=== PATIENT | male | born 1970 | race Caucasian/White ===

== ENCOUNTER 2022-01-01 20:31 | Emergency (ER) | payer SELFPAY ==
[~2022-01-01] VITALS: Ht 170.2 cm; Wt 95.0 kg
[2022-01-01] MEDS ORDERED: ASPIRIN 81MG TABLET PO ONE (21:00)
[2022-01-01] MEDS ORDERED: SODIUM CHLORIDE 0.9% 1,000 ML IV ONE (21:00)
[2022-01-01 22:04] LABS: BASOPHILS % 0.5 % (0.0-2.0); EOSINOPHILS % 1.1 % (0.0-5.0); HEMATOCRIT. 42.8 % (42.0-52.0); HEMOGLOBIN. 14.2 g/dL (14.0-18.0); LYMPHOCYTES % 28.3 % (20.0-50.0); MEAN CORPUSCULAR HEMOGLOBIN 29.2 pg (28.0-32.0); MEAN CORPUSCULAR VOLUME 87.8 fL (80.0-94.0); MEAN PLATELET VOLUME 8.1 fl (7.4-10.4); MONOCYTES % 12.7 % (2.0-8.0); NEUTROPHILS % 57.4 % (40.0-76.0); PLATELET 178 x1000/uL (130-400); RED BLOOD CELL COUNT 4.88 mill/uL (4.7-6.1); RED CELL DISTRIBUTION WIDTH 12.7 % (11.6-14.6)
[2022-01-01 22:21] LABS: CHLORIDE 93 mEq/L (98-107)
[2022-01-01 22:36] LABS: BETA HYDROXYBUTYRATE 0.1 mMol/L (0.0-0.3); ETHANOL BLOOD < 10 mg/dL
[2022-01-02] MEDS ORDERED: ASPIRIN 81MG TABLET PO NR (00:15)
[2022-01-02] MEDS ORDERED: INSULIN LISPRO 100 UNITS/ML SUBCUT NR (00:15)
[2022-01-02 01:56] LABS: CLARITY URINE CLEAR (CLEAR); COLOR URINE YELLOW (YELLOW); KETONES URINE NEGATIVE (NEGATIVE); LEUKOCYTE ESTERASE URINE NEGATIVE (NEGATIVE); NITRITE URINE NEGATIVE (NEGATIVE); OCCULT BLOOD URINE NEGATIVE (NEGATIVE); PH URINE 7.5 (4.5-8.0); PROTEIN URINE NEGATIVE (NEGATIVE); SPECIFIC GRAVITY URINE 1.027 (1.005-1.030); UROBILINOGEN URINE 0.2 E.U./dL (0.2-1.0)
[2022-01-02 02:00] VITALS: BP 159/86
[2022-01-02] MEDS ORDERED: POTASSIUM CHLORIDE 20MEQ TABLET SR PO NR (02:00)
[2022-01-02 02:15] LABS: *AMPHETAMINES SCREEN URINE NEGATIVE (NEGATIVE); *BARBITURATES SCREEN URINE NEGATIVE (NEGATIVE); *BENZODIAZEPINES SCREEN URINE NEGATIVE (NEGATIVE); *COCAINE SCREEN URINE NEGATIVE (NEGATIVE); CANNABINOID URINE SCREEN NEGATIVE (NEGATIVE); METHADONE URINE SCREEN NEGATIVE (NEGATIVE); OPIATES URINE SCREEN NEGATIVE (NEGATIVE); PHENCYCLIDINE URINE SCREEN NEGATIVE (NEGATIVE)
== END 2022-01-02 04:09 | disposition home or self-care (01) ==
LOC: ER 20:31
DX: F10.239 Alcohol dependence with withdrawal, unspecified (principal); E11.65 Type 2 diabetes mellitus with hyperglycemia; R00.0 Tachycardia, unspecified; I10 Essential (primary) hypertension; Z20.822 Contact with and (suspected) exposure to COVID-19; Y90.0 Blood alcohol level of less than 20 mg/100 ml; Z91.14 Patient's other noncompliance with medication regimen; Z79.4 Long term (current) use of insulin; Z79.84 Long term (current) use of oral hypoglycemic drugs
CPT/HCPCS: 36415; 71045; 80053; 80305; 80320; 81003; 82010; 82962; 83880; 84484; 85025; 87426; 93005; 96360; 96372; 99285; J1815; J7030; Z7610; G0480

== ENCOUNTER 2023-09-18 20:01 | Emergency (ER) | payer SELFPAY ==
[~2023-09-18] VITALS: Ht 170.2 cm; Wt 89.0 kg
[2023-09-18 20:21] VITALS: O2SAT 100
[2023-09-18] MEDS: LIDOCAINE HCL/EPINEPHRINE 1%-EPI 1:100,000 20 ML VIAL INFIL ONE (23:15)
[2023-09-18] MEDS: BACITRACIN ZINC OINT UDPKT TOP ONE (23:15)
[2023-09-18] MEDS ORDERED: SULF1TAB48 MT (23:47)
[2023-09-19 00:40] VITALS: BP 179/97; PULSE 83; RESP 14; TEMP 98
== END 2023-09-19 00:43 | disposition home or self-care (01) ==
LOC: ER 20:01
DX: L02.31 Cutaneous abscess of buttock (principal); E11.9 Type 2 diabetes mellitus without complications; I10 Essential (primary) hypertension
CPT/HCPCS: 99283; 10060; J3490; 99282

== ENCOUNTER 2024-11-25 20:41 | Emergency (ER) | payer MEDICAID ==
[~2024-11-25] VITALS: Ht 177.8 cm; Wt 100.0 kg
[~2024-11-25 20:41] MED LIST: SULF1TAB48 MT
[2024-11-25 20:54] VITALS: O2SAT 99
[2024-11-25 21:31] VITALS: BP 140/76; PULSE 86; RESP 13; TEMP 36.8; O2SAT 99
[2024-11-25 23:48] LABS: BASOPHILS % 0.7 % (0.0-2.0); EOSINOPHILS % 0.5 % (0.0-5.0); HEMATOCRIT. 47.5 % (42.0-52.0); HEMOGLOBIN. 15.6 g/dL (14.0-18.0); LYMPHOCYTES % 49.2 % (20.0-50.0); MEAN CORPUSCULAR HEMOGLOBIN 30.2 pg (28.0-32.0); MEAN CORPUSCULAR HGB CONC 32.7 g/dL (31.0-37.0); MEAN CORPUSCULAR VOLUME 92.3 fL (80.0-94.0); MEAN PLATELET VOLUME 8.7 fl (7.4-10.4); MONOCYTES % 9.2 % (2.0-8.0); NEUTROPHILS % 40.4 % (40.0-76.0); PLATELET 266 x1000/uL (130-400); RED BLOOD CELL COUNT 5.15 mill/uL (4.7-6.1); RED CELL DISTRIBUTION WIDTH 14.5 % (11.6-14.6); WHITE BLOOD COUNT 8.8 x1000/uL (4.5-11.0)
[2024-11-26 00:06] LABS: CHLORIDE 109 mEq/L (98-107); POTASSIUM 3.7 mEq/L (3.5-5.1); SODIUM 149 mEq/L (136-145)
[2024-11-26 00:07] LABS: CALCIUM 8.3 mg/dL (8.7-10.4); CARBON DIOXIDE 19 mEq/L (21-32)
[2024-11-26 00:12] LABS: CREATININE 0.7 mg/dL (0.6-1.3); GLUCOSE 195 mg/dL (70-105)
[2024-11-26 00:13] LABS: UREA NITROGEN BLOOD 10 mg/dL (9-23)
[2024-11-26 00:31] LABS: ETHANOL BLOOD 413 mg/dL (<10)
[2024-11-26] MEDS: SODIUM CHLORIDE 0.9% 1,000 ML IV ONE (00:58)
== END 2024-11-26 02:45 | disposition home or self-care (01) ==
LOC: MERGE 20:41 → ER 20:41 → EDBD 20:41 → EDBEDREQTM 11-26 02:03 → EDBEDREQ 11-26 02:03 → ER 11-26 02:45
DX: F10.129 Alcohol abuse with intoxication, unspecified (principal); Y90.8 Blood alcohol level of 240 mg/100 ml or more
CPT/HCPCS: 80048; 80320; 85025; 36415; 99283; 96360; J7030; G0480

== ENCOUNTER 2025-03-11 18:11 | Emergency (ER) | payer MEDICAID ==
[~2025-03-11] VITALS: Ht 170.2 cm; Wt 91.0 kg
[2025-03-11 18:12] VITALS: BP 166/92; PULSE 90; RESP 18; TEMP 36.9; O2SAT 98
[2025-03-11] MEDS ORDERED: SODIUM CHLORIDE 0.9% 1,000 ML IV ONE (18:30)
[2025-03-11] MEDS ORDERED: LORAZEPAM 2MG/ML UD SYRINGE IV SCH (19:00)
== END 2025-03-11 19:26 | disposition home or self-care (01) ==
LOC: ER 18:11 → CMPBEDREQ 03-12 07:21
DX: F10.129 Alcohol abuse with intoxication, unspecified (principal); Z53.29 Procedure and treatment not carried out because of patient's decision for other reasons; Y90.9 Presence of alcohol in blood, level not specified
CPT/HCPCS: 93005; 99283; 99284; J2060; J7030

== ENCOUNTER 2025-03-12 16:20 | Inpatient (IN) | payer MEDICAID ==
[~2025-03-12] VITALS: Ht 172.7 cm; Wt 94.3 kg
[2025-03-12 16:23] VITALS: O2SAT 100
[2025-03-12] MEDS: SODIUM CHLORIDE 0.9% 1,000 ML IV ONE ×2 (17:01→18:21)
[2025-03-12] MEDS: ONDANSETRON HCL 4MG/2ML INJ IV ONE (17:01)
[2025-03-12 17:22] LABS: BASOPHILS % 0.4 % (0.0-2.0); EOSINOPHILS % 0.2 % (0.0-5.0); HEMATOCRIT. 49.1 % (42.0-52.0); HEMOGLOBIN. 15.9 g/dL (14.0-18.0); LYMPHOCYTES % 42.3 % (20.0-50.0); MEAN PLATELET VOLUME 8.3 fl (7.4-10.4); MONOCYTES % 4.9 % (2.0-8.0); NEUTROPHILS % 52.2 % (40.0-76.0); PLATELET 274 x1000/uL (130-400); RED BLOOD CELL COUNT 5.56 mill/uL (4.7-6.1); RED CELL DISTRIBUTION WIDTH 13.0 % (11.6-14.6)
[2025-03-12 17:50] LABS: CREATININE 0.7 mg/dL (0.6-1.3); TROPONIN I HIGH SENSITIVITY < 4 ng/L (3.0-53); UREA NITROGEN BLOOD 6 mg/dL (9-23)
[2025-03-12 17:51] LABS: ASPARTATE AMINOTRANSFERASE 79 IU/L (<34)
[2025-03-12 17:52] LABS: BILIRUBIN DIRECT 0.2 mg/dL (<=3.0); BILIRUBIN TOTAL 0.6 mg/dL (0.1-1.0); PROTEIN TOTAL 7.4 g/dL (6.0-8.3)
[2025-03-12] MEDS ORDERED: DOCUSATE SODIUM 100MG CAPSULE PO PRN (19:30)
[2025-03-12] MEDS ORDERED: ONDANSETRON HCL 4MG/2ML INJ IV PRN (19:30)
[2025-03-12] MEDS ORDERED: GUAIFENESIN 200MG/10ML SUGAR FREE UDC PO PRN (19:30)
[2025-03-12] MEDS ORDERED: MAGNESIUM/ALUMINUM HYDROXIDE/SIMETHICONE 30ML UDC PO PRN (19:30)
[2025-03-12] MEDS: LACTATED RINGERS 1,000 ML IV SCH (19:30)
[2025-03-12] MEDS ORDERED: IPRATROPIUM/ALBUTEROL 0.5-3(2.5)MG/3ML NEB HHN PRN (19:30)
[2025-03-12] MEDS ORDERED: ACETAMINOPHEN 325MG TABLET PO PRN ×2 (19:30)
[2025-03-12] MEDS ORDERED: CLONIDINE 0.1MG TABLET PO PRN (19:30)
[2025-03-12] MEDS ORDERED: DEXTROSE 50% WATER 50ML SYRINGE IV PRN (19:45)
[2025-03-12] MEDS: MVI, ADULT NO.1 10 ML, FOLIC ACID 1 MG, THIAMINE HCL 100 MG in SODIUM CHLORIDE 0.9% 1,0... IV SCH (20:11)
[2025-03-12] MEDS: BLOOD SUGAR DIAGNOSTIC STRIP TEST SCH (21:00)
[2025-03-12] MEDS: INSULIN LISPRO 100 UNITS/ML SUBCUT SCH (21:00)
[2025-03-12] MEDS: LORAZEPAM 2MG/ML UD SYRINGE IV PRN (21:17)
[2025-03-12 21:53] VITALS: O2SAT 100
[2025-03-12 21:59] LABS: PHOSPHORUS 3.7 mg/dL (2.5-4.9)
[2025-03-12] MEDS: CHLORDIAZEPOXIDE 25MG CAPSULE PO NR (22:03)
[2025-03-13 00:20] VITALS: BP 155/85; PULSE 100; RESP 18; TEMP 36.974
[2025-03-13 04:00] VITALS: BP 144/80; PULSE 113; RESP 16; TEMP 37.7
[2025-03-13] MEDS: LORAZEPAM 0.5MG TABLET PO PRN (04:30)
[2025-03-13 05:24] LABS: CREATININE 0.7 mg/dL (0.6-1.3)
[2025-03-13 05:25] LABS: LDL CHOLESTEROL 142 mg/dL (5-100); TRIGLYCERIDE 266 mg/dL (0-150); UREA NITROGEN BLOOD 8 mg/dL (9-23)
[2025-03-13 06:29] LABS: BASOPHILS % 0.5 % (0.0-2.0); EOSINOPHILS % 1.5 % (0.0-5.0); HEMATOCRIT. 47.0 % (42.0-52.0); HEMOGLOBIN. 15.4 g/dL (14.0-18.0); LYMPHOCYTES % 34.5 % (20.0-50.0); MEAN PLATELET VOLUME 8.4 fl (7.4-10.4); MONOCYTES % 5.3 % (2.0-8.0); NEUTROPHILS % 58.2 % (40.0-76.0); PLATELET 290 x1000/uL (130-400); RED BLOOD CELL COUNT 5.37 mill/uL (4.7-6.1); RED CELL DISTRIBUTION WIDTH 12.8 % (11.6-14.6)
[2025-03-13] MEDS: CHLORDIAZEPOXIDE 25MG CAPSULE PO SCH (06:32)
[2025-03-13] MEDS: PANTOPRAZOLE 40MG DR TABLET PO SCH (06:32)
[2025-03-13] MEDS ORDERED: ENOXAPARIN 40MG/0.4ML SYR SUBCUT SCH (09:00)
[2025-03-13] MEDS ORDERED: THIAMINE HCL 100MG TABLET PO SCH (09:00)
[2025-03-13] MEDS ORDERED: FOLIC ACID 1MG TABLET PO SCH (09:00)
[2025-03-13] MEDS ORDERED: MULTIVITAMINS,THER W-MINERALS TABLET PO SCH (09:00)
== END 2025-03-13 08:25 | disposition left against medical advice (07) | DRG 351 ==
LOC: ER 16:20 → EDBEDREQSVC 18:08 → EDBEDREQ 18:33 → EDBEDREQTM 18:33 → ENRESERV 21:45 → 5WST 23:16
PROVIDERS: ADMIT Internal Medicine; ATTEND Internal Medicine
DX: M62.82 Rhabdomyolysis (principal); G92.8 Other toxic encephalopathy; E87.20 Acidosis, unspecified; E88.89 Other specified metabolic disorders; E11.65 Type 2 diabetes mellitus with hyperglycemia; Z53.29 Procedure and treatment not carried out because of patient's decision for other reasons; F10.929 Alcohol use, unspecified with intoxication, unspecified; F10.939 Alcohol use, unspecified with withdrawal, unspecified; I10 Essential (primary) hypertension; Z91.199 Patient's noncompliance with other medical treatment and regimen due to unspecified reason; Z59.00 Homelessness unspecified; Z79.899 Other long term (current) drug therapy; Y90.8 Blood alcohol level of 240 mg/100 ml or more
CPT/HCPCS: 36415; 80048; 80061; 80076; 80307; 80320; 80329; 82010; 82140; 82550; 82553; 82962; 83036; 83605; 83735; 83880; 84100; 84443; 84484; 85025; 93005; 99291; A4606; J2060; J2405; J3411; J3490; J7030; G0480